=== PATIENT | female | born 1960 | race Two or more races ===

== ENCOUNTER → 2017-10-03 | Outpatient (CLI) | payer OTHER | END | disposition home or self-care (01) | LOC: SONOGRAMA 07:17 | DX: E04.1 Nontoxic single thyroid nodule (principal) ==

== ENCOUNTER 2018-09-19 06:16 | Day surgery (SDC) | payer OTHER ==
[~2018-09-19 06:16] MED LIST: KAPSPARGO SPRIN50 MG PO; VICTOZA PO; WELLBUTRIN XL300 MG PO
[2018-09-19] MEDS ORDERED: DOXYCYCLINE HY100 MG PO (10:23)
[2018-09-19] MEDS ORDERED: NAPROXEN500 MG PO (10:24)
== END 2018-09-19 14:45 | disposition home or self-care (01) ==
LOC: CIR.AMB 06:16
DX: N84.0 Polyp of corpus uteri (principal); D25.0 Submucous leiomyoma of uterus